=== PATIENT | female | born 1985 | race Caucasian/White ===

== ENCOUNTER 2017-11-03 00:11 | Inpatient (IN) | payer OTHER ==
[~2017-11-03] VITALS: Ht 157.5 cm; Wt 88.0 kg
--- NOTE | 2017-11-03 00:26 | NUR ---
[facility] scanned three hours early due to [employer] system down from [id number].
--- NOTE | 2017-11-04 10:23 | PR ---
[facility] [address] [place], [place] [address] Signed PP Progress Notes Datetime Report Generated by CPN: 11/04/2017 10:23 SUBJECTIVE: [id number] Pain: Within normal limits Vital Signs: [id number] Vital Signs: Reviewed; Within Normal Limits EXAM: [id number] Cardiovascular: Not Done Respiratory: Not Done Abdomen/Uterus: Abnormal Lochia: Normal Vulva/Perineum: Not Done Breasts: Not Done CVA Tenderness: Not Done Extremities: Normal Incision: Not Applicable Progress: Normal Exam Comments: Fundus firm, NT @ U-1. H/H 10.9/32.4, WBC 8.7, plat 130k IMPRESSION/PLAN/PROCEDURES: [id number] Impression: Normal progression Plan: Discharge Progress Notes: Doing well. She is ready for D/C. Signing Physician: Nancy Murguia MD Copies: ~ *Electronically Signed* 11/04/17 1023 NANCY MURGUIA MD PATIENT NAME: BASIL SAENZ PROGRESS NOTE DATE OF : 89 PHYSICIAN: NANCY MURGUIA MD RPT #: [id number] REPORT IS CONFIDENTIAL AND NOT TO BE RELEASED WITHOUT AUTHORIZATION
== END 2017-11-04 16:50 | disposition home or self-care (01) | DRG 775 ==
LOC: FBC 00:11
PROVIDERS: ADMIT Obstetrics & Gynecology
PROC: 10E0XZZ Delivery of Products of Conception, External Approach (ICD-10-PCS; principal; 2017-11-03)
PROC: 0KQM0ZZ Repair Perineum Muscle, Open Approach (ICD-10-PCS; 2017-11-03)
PROC: 10907ZC Drainage of Amniotic Fluid, Therapeutic from Products of Conception, Via Natural or Artificial Opening (ICD-10-PCS; 2017-11-03)
PROC: 3E0P7VZ Introduction of Hormone into Female Reproductive, Via Natural or Artificial Opening (ICD-10-PCS; 2017-11-03)
PROC: 00HU33Z Insertion of Infusion Device into Spinal Canal, Percutaneous Approach (ICD-10-PCS; 2017-11-03)
PROC: 3E0R3BZ Introduction of Anesthetic Agent into Spinal Canal, Percutaneous Approach (ICD-10-PCS; 2017-11-03)
DX: O76 Abnormality in fetal heart rate and rhythm complicating labor and delivery (principal); O70.1 Second degree perineal laceration during delivery; Z3A.39 39 weeks gestation of pregnancy; Z87.891 Personal history of nicotine dependence; Z37.0 Single live birth
CPT/HCPCS: 36415; 82803; 85027; J2590; J2795; J7120